=== PATIENT | female | born 1990 | race African-American/Black ===

== ENCOUNTER 2023-11-15 03:26 | Emergency (ER) | payer MEDICAID ==
[~2023-11-15] VITALS: Ht 175.3 cm; Wt 70.0 kg
[2023-11-15 03:57] VITALS: O2SAT 100
[2023-11-15] MEDS ORDERED: METOCLOPRAMIDE HCL 10MG TABLET PO ONE (06:00)
[2023-11-15 06:14] LABS: BASOPHILS % 0.6 % (0.0-2.0); EOSINOPHILS % 1.1 % (0.0-5.0); HEMATOCRIT. 36.1 % (36.0-48.0); HEMOGLOBIN. 11.8 g/dL (12.0-16.0); LYMPHOCYTES % 18.5 % (20.0-50.0); MEAN CORPUSCULAR HEMOGLOBIN 27.3 pg (28.0-32.0); MEAN CORPUSCULAR HGB CONC 32.7 g/dL (31.0-37.0); MEAN CORPUSCULAR VOLUME 83.6 fL (81.0-99.0); MEAN PLATELET VOLUME 9.8 fl (7.4-10.4); NEUTROPHILS % 68.8 % (40.0-76.0); PLATELET 280 x1000/uL (130-400); RED BLOOD CELL COUNT 4.33 mill/uL (4.2-5.4); RED CELL DISTRIBUTION WIDTH 14.7 % (11.6-14.6); WHITE BLOOD COUNT 9.8 x1000/uL (4.5-11.0)
[2023-11-15 06:32] LABS: ALANINE AMINOTRANSFERASE 10 IU/L (10-49); ALBUMIN 4.3 g/dL (3.2-4.8); ASPARTATE AMINOTRANSFERASE 14 IU/L (<34); BILIRUBIN TOTAL 0.3 mg/dL (0.1-1.0); CARBON DIOXIDE 24 mEq/L (21-32); CHLORIDE 107 mEq/L (98-107); CREATININE 0.6 mg/dL (0.6-1.0); GLUCOSE 103 mg/dL (70-105); POTASSIUM 4.4 mEq/L (3.5-5.1); PROTEIN TOTAL 6.8 g/dL (6.0-8.3); SODIUM 135 mEq/L (136-145); UREA NITROGEN BLOOD 12 mg/dL (9-23)
[2023-11-15] MEDS: METOCLOPRAMIDE HCL 10MG TABLET PO NR (08:30)
[2023-11-15 08:46] LABS: HCG SCREEN POSITIVE
[2023-11-15 08:47] LABS: CLARITY URINE CLOUDY (CLEAR); COLOR URINE YELLOW (YELLOW); GLUCOSE URINE NEGATIVE (NEGATIVE); KETONES URINE NEGATIVE (NEGATIVE); LEUKOCYTE ESTERASE URINE 2+ (NEGATIVE); NITRITE URINE NEGATIVE (NEGATIVE); OCCULT BLOOD URINE NEGATIVE (NEGATIVE); PROTEIN URINE TRACE (NEGATIVE)
[2023-11-15 09:17] LABS: CALCIUM OXALATE CRYSTALS URINE 1+ /lpf; MUCUS URINE 1+ /lpf (< = 2+); SQUAMOUS EPITHELIAL CELL URINE 3+ /lpf (RARE/1+)
[2023-11-15 09:19] LABS: BACTERIA URINE 3+
[2023-11-15 09:20] LABS: RBC URINE NONE SEEN /hpf (0-2); WBC URINE 0-2 /hpf (0-2); YEAST URINE FEW
[2023-11-15] MEDS ORDERED: METO-293 MT (10:18)
[2023-11-15] MEDS ORDERED: PYRI50TA11 PO (10:18)
[2023-11-15] MEDS ORDERED: CEPH500C2 MT (10:18)
[2023-11-15 11:03] VITALS: BP 130/84; PULSE 85; RESP 18; TEMP 98
== END 2023-11-15 11:46 | disposition home or self-care (01) ==
LOC: ER 04:48
DX: O23.31 Infections of other parts of urinary tract in pregnancy, first trimester (principal); Z3A.09 9 weeks gestation of pregnancy
CPT/HCPCS: 99284; 76801; 80053; 81003; 81025; 84703; 84702; 83690; 85025; 36415; 76817; J8597

== ENCOUNTER 2025-03-27 15:34 | Emergency (ER) | payer OTHER ==
[~2025-03-27] VITALS: Ht 172.7 cm; Wt 91.0 kg
[~2025-03-27 15:34] MED LIST: CEPH500C2 MT; METO-293 MT; PYRI50TA11 PO
[2025-03-27 15:47] VITALS: O2SAT 100
[2025-03-27] MEDS ORDERED: ACET-2708 MT (17:04)
[2025-03-27] MEDS: LIDOCAINE 5% PATCH TOP SCH (17:05)
[2025-03-27] MEDS: ACETAMINOPHEN 500MG TABLET PO ONE (18:32)
[2025-03-27 18:34] VITALS: BP 165/97; PULSE 78; RESP 14; TEMP 37.2; O2SAT 100
== END 2025-03-27 18:34 | disposition home or self-care (01) ==
LOC: ER 15:34
DX: M79.644 Pain in right finger(s) (principal); Z79.899 Other long term (current) drug therapy; Z98.890 Other specified postprocedural states; W18.30XA Fall on same level, unspecified, initial encounter; Y93.89 Activity, other specified; Y92.89 Other specified places as the place of occurrence of the external cause; Y99.8 Other external cause status
CPT/HCPCS: 29130; 73120; 99283